=== PATIENT | female | born 1970 | race African-American/Black ===

== ENCOUNTER → 2017-02-05 | Outpatient (CLI) | payer OTHER | LOC: COL.RAD 09:34 | DX: R11.0 Nausea (principal); R59.0 Localized enlarged lymph nodes ==

== ENCOUNTER → 2017-03-03 | Outpatient (CLI) | payer OTHER | LOC: COL.RAD 13:52 | DX: D86.3 Sarcoidosis of skin (principal); M25.512 Pain in left shoulder | CPT/HCPCS: Q9967 ==